=== PATIENT | female | born 1995 | race Caucasian/White ===

== ENCOUNTER 2017-07-10 15:07 | Emergency (ER) | payer SELFPAY ==
[~2017-07-10] VITALS: Ht 152.4 cm; Wt 60.8 kg
[~2017-07-10 15:07] MED LIST: MIRALAX17 GM PO; MOTRIN800 MG PO; NORCO 7.5/321 TABLET PO; ULTRAM50 MG PO; VALIUM5 MG PO; ZOFRAN4 MG PO
[2017-07-10 17:19] LABS: ADD MIUA? YES; BILIRUBIN NEGATIVE; BLOOD NEGATIVE; COLOR YELLOW ((YELLOW)); GLUCOSE (STRIP) NEGATIVE; KETONES NEGATIVE; LEUKOCYTES TRACE; NITRITE NEGATIVE; PROTEIN (STRIP) NEGATIVE; SPECIFIC GRAVITY 1.011 (1.000-1.030); UROBILINOGEN 0.2 MG/DL (0.2-1.0)
[2017-07-10 17:22] LABS: BACTERIA 3+ /HPF; EPITHELIAL CELLS 1+ /HPF; MUCUS TRACE /LPF; RED BLOOD CELLS 0-5 /HPF (0-5); UCUL ADDED? YES
[2017-07-10] MEDS ORDERED: KEFLEX500 MG PO (18:02)
[2017-07-10] MEDS ORDERED: NAPROXEN500 MG PO (18:05)
[2017-07-10] MEDS ORDERED: FLEXERIL10 MG PO (18:05)
[2017-07-10 18:37] VITALS: BP 130/79
== END 2017-07-10 18:38 | disposition home or self-care (01) ==
LOC: EME 15:07
PROVIDERS: Physician Assistant Medical
DX: M54.12 Radiculopathy, cervical region (principal); N39.0 Urinary tract infection, site not specified
CPT/HCPCS: 81003; 87077; 87086; 87186; 99281; 99284; J1100; J1200; J1885; J2765; J7030